=== PATIENT | male | born 1985 | race Caucasian/White ===

== ENCOUNTER → 2016-05-28 | Outpatient (CLI) | payer BC ==
[~2016-05-28] MED LIST: CIPRO 500MG TA500 MG PO; LORTAB 5/500 501 TAB PO; NO HOME MEDICATIONS; ZOFRAN 4MG T4 MG/TAB PO
== END ==
LOC: ZCOL.LAB 14:08
DX: R00.2 Palpitations (principal); R07.89 Other chest pain

== ENCOUNTER → 2017-08-12 | Outpatient (CLI) | payer BC | LOC: COL.RAD 09:51 | DX: J34.89 Other specified disorders of nose and nasal sinuses (principal); D16.4 Benign neoplasm of bones of skull and face ==

== ENCOUNTER → 2019-04-15 | Outpatient (CLI) | payer BC | LOC: COL.RAD 13:30 | DX: J32.9 Chronic sinusitis, unspecified (principal); J34.89 Other specified disorders of nose and nasal sinuses; Z98.890 Other specified postprocedural states ==

== ENCOUNTER → 2019-04-23 | Outpatient (CLI) | payer BC | LOC: ZCOL.LAB 16:29 | DX: J32.1 Chronic frontal sinusitis (principal) ==

== ENCOUNTER → 2020-05-13 | Outpatient (CLI) | payer BC | LOC: ZCOL.LAB 16:30 | DX: J32.1 Chronic frontal sinusitis (principal) ==